=== PATIENT | female | born 1980 | race Two or more races ===

== ENCOUNTER 2016-10-10 22:25 | Emergency (ER) | payer MEDICARE ==
[~2016-10-10 22:25] MED LIST: ALBUTEROL0.63 MG/3 INH; ALBUTEROL17 GM INH; ATIVAN PO; BACTRIM DS TABL1 TA1 PO; CIPRO PO; CLONIDINE HCL0.1 MG PO; COLACE50 MG PO; DULOXETINE HCL30 MG PO; FLEXERIL10 MG PO; LORTAB 5/500 TA1 TA1 PO; MACROBID100 MG PO; MIRALAX17 GM PO; NAPROSYN500 MG PO; NAPROXEN PO; NO MEDICATIONS; OMEPRAZOLE20 M2 PO; PEPCID AC20 MG PO; PHENERGAN PO; PREDNISONE PO; PRENATAL VITAMI1 TA3 PO; PROZAC PO; PYRIDIUM PO; SEROQUEL50 MG PO; VICODIN 5/1 TAB 5/50 PO; VICODIN 5/500 T1 TAB PO; VISTARIL PO; ZOFRANODT PO
== END 2016-10-10 23:38 | disposition home or self-care (01) ==
LOC: SED 22:25
DX: F41.0 Panic disorder [episodic paroxysmal anxiety] (principal); Z91.040 Latex allergy status; Z88.5 Allergy status to narcotic agent
CPT/HCPCS: 99283